=== PATIENT | male | born 1985 | race Two or more races ===

== ENCOUNTER 2021-02-09 09:58 | Emergency (ER) | payer MEDICAID, OTHER ==
[~2021-02-09] VITALS: Ht 182.9 cm; Wt 99.1 kg
--- NOTE | 2021-02-09 10:13 | NUR ---
deployment specialist: EKG done in triage
--- NOTE | 2021-02-09 10:19 | NUR ---
PATIENT WALKED BACK FROM TRIAGE WITH CHIEF C/O SWOLLEN LYMPH NODE IN NECK. PATIENT STATES THREE WEEKS AGO HE NOTICED A SWOLLEN LYMPH NODE AND WAS SEEN BY SUPERVISOR PRE WAVE AND TESTED FOR STDS. ABOUT A WEEK AGO PATIENT STARTTED HAVING LEFT-SIDED CHEST PAIN AND LYMPH NODE SWELLING HAS INCREASED. JAYLYN GAYTAN, CALL LIGHT WITHIN REACH. JACLYNA AT BEDSIDE FOR EVALUATION.
[2021-02-09 10:46] LABS: BASOPHILS % (AUTO) 0 % (0-1); EOSINOPHILS % (AUTO) 2 % (1-7); LYMPHOCYTES % (AUTO) 25 % (22-44); MEAN CORPUSCULAR HEMOGLOBIN 29.1 pg (27.5-34.5); MEAN CORPUSCULAR HGB CONC 34.2 g/dL (33.2-36.2); MEAN PLATELET VOLUME 9.9 fL (7.4-10.4); MONOCYTES % (AUTO) 8 % (2-9); NEUTROPHILS % (AUTO) 65 % (42-75); PLATELET COUNT 201 x10^3/uL (130-400); RED BLOOD COUNT 5.56 x10^6/uL (4.38-5.82); RED CELL DISTRIBUTION WIDTH 12.9 % (9.4-14.8)
[2021-02-09 10:49] LABS: MD NO
[2021-02-09 10:55] LABS: ALBUMIN 3.8 g/dL (3.4-5.0); ANION GAP 4 mmol/L (5-15); CALCIUM 8.7 mg/dL (8.5-10.1); CHLORIDE 108 mmol/L (98-107); CREATININE 0.96 mg/dL (0.7-1.3)
[2021-02-09] MEDS ORDERED: SODIUM CHLORIDE FLUSH 10ML SYR IVF ONE (11:00)
--- NOTE | 2021-02-09 11:17 | NUR ---
20 GAUGE IV STARTED BY EGG CRATER. PATIENT CONNECTED TO MONITOR, NADN, VSS, CALL LIGHT WITHIN REACH. WAITING FOR CT SCAN.
[2021-02-09] MEDS ORDERED: OMNIPAQUE 350 MG/ML, 100ML BOTTLE ONE (11:42)
[2021-02-09] MEDS ORDERED: DEXAMETHASONE 4 MG TABLET ONE (12:12)
--- NOTE | 2021-02-09 12:13 | NUR ---
ERPA AT BEDSIDE TO DISCUSS POC AND DISCHARGE DISPO.
[2021-02-09] MEDS ORDERED: DEXAMETHASONE 4 MG/ML, 5ML ONE (12:15)
[2021-02-09] MEDS ORDERED: DEXAMETHASONE 4 MG/ML, 1ML PO ONE (12:30)
[2021-02-09 12:35] VITALS: BP 140/82
--- NOTE | 2021-02-09 12:36 | NUR ---
BREAK RN: Patient given discharge instructions and RX, they have confirmed that they understand the instructions. Patient ambulatory with steady gait.
== END 2021-02-09 12:37 | disposition home or self-care (01) ==
LOC: ED 10:43
DX: R07.89 Other chest pain (principal); L04.0 Acute lymphadenitis of face, head and neck; M54.2 Cervicalgia; R94.31 Abnormal electrocardiogram [ECG] [EKG]
CPT/HCPCS: 36415; 70491; 71045; 80048; 82040; 85025; 93005; 99285; J1100; Q9967